=== PATIENT | male | born 1950 | race African-American/Black ===

== ENCOUNTER 2018-03-13 13:13 | Observation (INO) | payer MEDICARE ==
[2018-03-13 13:40] LABS: #Basophils 0.1 thou/uL (0.0-0.2); #Eosinphils 0.1 thou/uL (0.0-0.7); #Monocytes 0.6 thou/uL (0.11-0.59); #Neutrophils 5.6 thou/uL (1.40-6.50); %Basophils 0.8 % (0.0-1.0); %Eosinophils 0.6 % (0.0-10.0); %Lymphocytes 24.1 % (21.0-51.0); %Monocytes 7.5 % (0.0-10.0); Hemoglobin 14.4 g/dL (14.0-18.0); Mean Corpuscular HGB CONC 32.4 g/dL (32.0-36.0); Mean Corpuscular Hemoglobin 31.5 pg (27.0-31.0); Mean Corpuscular Volume 97.4 fL (78.0-98.0); Platelet Count 267 thou/uL (130-400); RBC Distribution Width 12.6 % (11.5-14.5); Red Blood Cell (RBC) Count 4.58 mill/uL (4.70-6.10); White Blood Cell (WBC) Count 8.4 thou/uL (4.8-10.8)
[2018-03-13 13:49] LABS: INR-International Normal Ratio 1.1; PTT 26.3 SEC (22.9-36.1); Prothrombin Time 14.1 SEC (12.0-14.7)
[2018-03-13 14:08] LABS: ALT (SGPT) 41 U/L (8-55); AST (SGOT) 27 U/L (5-34); Albumin 4.1 g/dL (3.4-4.8); Alkaline Phosphatase 68 U/L (40-150); Anion Gap 15 mmol/L (10-20); BUN (Urea Nitrogen) 17 mg/dL (8.4-25.7); Bilirubin, Total 0.6 mg/dL (0.2-1.2); CK (CPK) 242 U/L (30-200); Calc. Creatinine Clearance 0 mL/min (70-130); Calcium 9.9 mg/dL (7.8-10.44); Carbon Dioxide 21 mmol/L (23-31); Chloride 108 mmol/L (98-107); Estimated GFR-MDRD 79; Globulin 3.7 g/dL (2.4-3.5); Glucose 88 mg/dL (80-115); Potassium 3.6 mmol/L (3.5-5.1); Protein, Total 7.8 g/dL (5.8-8.1); Sodium 140 mmol/L (136-145)
[2018-03-13 14:12] LABS: CKMB 3.4 ng/mL (0-6.6)
[2018-03-13 14:33] LABS: Bilirubin Negative (Negative); Blood, Urine Negative (Negative); Clarity CLEAR (Clear); Glucose, Urine (Dipstick) Negative (Negative); Leukocyte Small (Negative); Nitrite Negative (Negative); Protein, Urine (Dipstick) Trace mg/dL (Neg-Trace); Specific Gravity, Urine 1.021 (1.002-1.036); Urobilinogen 0.2 mg/dL (0.2-1.0)
[2018-03-13 14:36] LABS: Bacteria/HPF None Seen HPF (None Seen); Hyaline Casts/LPF 4-6 HYALINE CAST LPF (0-3 Hyaline); Pathc Cast-AUWi Flag 0.72 (0-2.49); RBC/HPF None Seen HPF (0-3); Squamous Epithelial 0-3 HPF (0-3)
--- NOTE | 2018-03-13 14:38 | CT ---
CT HEAD NONCONTRAST: Date: 03/13/18 INDICATION: Left side weakness. COMPARISON: No prior imaging. FINDINGS: There is extensive, cystic, chronic encephalomalacia of the right cerebral hemisphere throughout the right MCA distribution which does result in prominent ex vacuo dilatation. There is no hemorrhage, ma ss effect, or midline shift. There is a lacunar infarction in the left basal ganglia. Superimposed ch ronic ischemic disease is present. No acute fluid levels of the paranasal sinuses. IMPRESSION: 1. Extensive chronic cystic encephalomalacia occupying a majority of the right cerebral hemisphere w ithin the MCA distribution with associated prominent ex vacuo dilatation of the ventricular system. 2. Lacunar infarction left basal ganglia. 3. No acute intracranial hemorrhage or mass effect. Telephone call findings placed to the ER physician, Dr. Plunkett, at 1321 hours on 03/13/18. CODE CR. POS: [facility]
--- NOTE | 2018-03-13 16:28 | PDOC.FPRHP ---
- History of Present Illness Chief Complaint: Weakness History of Present Illness: Mr. Aquino presents today to the ED with residual weakness from a stroke he had 3 -4 weeks ago Pt reports he is currently living out of a hotel and was picked up by PD on the way to get a haircut today when he was noted to have unilateral weakness.He denies any changes in his weakness, new chest pain, shortness of breath, palpitations, headache, visual changes or dizziness. He does not report much of any medical history and regularly contradicts his story. The weakness is confirmed to be at baseline per rehab he was discharged from. ED Course: CT, CK, CBC, CMP, CXR, trops - History PMHx: CVA PSHx: none FHx:none Social:1/2 pk a day, 12pk beer when he can get some - Review of Systems General: denies: fever/chills Eyes: denies: eye pain, vision changes ENT: denies: nasal congestion, rhinorrhea Respiratory: denies: cough, congestion Cardiovascular: denies: chest pain, palpitation Gastrointestinal: denies: nausea, vomiting, diarrhea Genitourinary: denies: incontinence, dysuria Skin: denies: rashes, lesions Musculoskeletal: denies: pain, tenderness Neurological: reports: weakness. denies: numbness - Vital signs BP: [] HR: [] RR: [] Tmax: [] Pox: []% on [] Wt: [] - Physical Exam Constitutional: NAD HEENT: normocephalic and atraumatic, grossly normal vision, grossly normal hearing Neck: supple, trachea midline Chest: no-tender to palpation, no lesions Heart: RRR, normal S1/S2, no murmurs/rubs/gallops Lungs: CTAB, no respiratory distress, good air movement, no rales/rhonchi, no wheezing, no retractions Abdomen: soft, non-tender, bowel sounds present Musculoskeletal: normal structure Neurological: other (2/5 strength on the L side) Skin: no rash/lesions, good turgor Heme/Lymphatic: no unusual bruising or bleeding FMR H&P: Results - Labs Result Diagrams: 03/13/18 13:34 03/13/18 13:34 Lab results: WBC 8.4 thou/uL (4.8-10.8) 03/13/18 13:34 Hgb 14.4 g/dL (14.0-18.0) 03/13/18 13:34 Hct 44.6 % (42.0-52.0) 03/13/18 13:34 MCV 97.4 fL (78.0-98.0) 03/13/18 13:34 Plt Count 267 thou/uL (130-400) 03/13/18 13:34 Neutrophils % 67.0 % (42.0-75.0) 03/13/18 13:34 Sodium 140 mmol/L (136-145) 03/13/18 13:34 Potassium 3.6 mmol/L (3.5-5.1) 03/13/18 13:34 Chloride 108 mmol/L (98-107) H 03/13/18 13:34 Carbon Dioxide 21 mmol/L (23-31) L 03/13/18 13:34 BUN 17 mg/dL (8.4-25.7) 03/13/18 13:34 Creatinine 0.95 mg/dL (0.6-1.3) 03/13/18 13:34 Glucose 88 mg/dL (80-115) 03/13/18 13:34 Calcium 9.9 mg/dL (7.8-10.44) 03/13/18 13:34 Total Bilirubin 0.6 mg/dL (0.2-1.2) 03/13/18 13:34 AST 27 U/L (5-34) 03/13/18 13:34 ALT 41 U/L (8-55) 03/13/18 13:34 Alkaline Phosphatase 68 U/L (40-150) 03/13/18 13:34 Creatine Kinase 242 U/L (30-200) H 03/13/18 13:34 CK-MB (CK-2) 3.4 ng/mL (0-6.6) 03/13/18 13:34 Serum Total Protein 7.8 g/dL (5.8-8.1) 03/13/18 13:34 Albumin 4.1 g/dL (3.4-4.8) 03/13/18 13:34 Urine Ketones Negative mg/dL (Negative) 03/13/18 14:15 Urine Blood Negative (Negative) 03/13/18 14:15 Urine Nitrite Negative (Negative) 03/13/18 14:15 Ur Leukocyte Esterase Small (Negative) H 03/13/18 14:15 Urine RBC None Seen HPF (0-3) 03/13/18 14:15 Urine WBC 11-20 HPF (0-3) H 03/13/18 14:15 Ur Squamous Epith Cells 0-3 HPF (0-3) 03/13/18 14:15 Urine Bacteria None Seen HPF (None Seen) 03/13/18 14:15 FMR H&P: A/P - Problem List (1) CVA, old, hemiparesis Current Visit: Yes Status: Acute Code(s): I69.359 - HEMIPLGA FOLLOWING CEREBRAL INFARCTION AFFECTING UNSP SIDE (2) HTN (hypertension) Current Visit: Yes Status: Acute Code(s): I10 - ESSENTIAL (PRIMARY) HYPERTENSION (3) HLD (hyperlipidemia) Current Visit: Yes Status: Acute Code(s): E78.5 - HYPERLIPIDEMIA, UNSPECIFIED - Plan Hx of CVA, residual weakness - CT neg for acute process, pos for old ischemic changes - asa, high dose statin - neuro checks, monitor on stroke floor HTN - permissive HTN HLD - high dose statin alcohol abuse - ASE protocol code: full ppx: lovenox Dispo: MRI wo to rule out acute CVA, DC tomorrow FMR H&P: Upper Level - Pertinent history 67 y/o M with hx/o stroke presents after being seen draggin his feet on the sidewalk today. He denies complaints. He was recently discharged from Rehab in [place] and says he has been living in a hotel and on the streets. Drinks ETOH regularly up to a 12 pack daily. States he does not have any medical problems other than HLD and HTN, and does have residual weakness on his L side as of 2w ago. - Pertinent findings NEURO: A& O x3. LLE and LUE strength 4/5. No cranial nerve defecits. No facial droop or slurring of speech. - Plan Date/Time: 03/13/18 1622 IJagdish, have evaluated this patient and agree with findings/plan as outlined by phd internship resident. Pertinent changes/additions are listed here. 1. Acute CVA vs TIA - Did certainly have a CVA 2 weeks ago but has not been on secondary prevention since that we know of. Continue with neuro checks. CT neck pending and will possibly need MRI. Apparently his Rehab was called and he appears at his baseline status. Observe him overnight. ASA/Statin 2. ETOH Abuse: up to a 12 pack per day[address] Will place on ASE protocol and medicate as needed. This may also contribute to his observed foot drop and abnormal behavior if he was intoxicated. 3. HTN: unsure of his medications, but we will place him on medications as his BP has been elevated. 4. HLD: On Statin. Attending Addendum - Attending Addendum Date/Time: 03/13/181921 I personally evaluated the patient and discussed the management with Dr. Vieira. I agree with the History, Examination, Assessment and Plan documented above with any addition or exceptions noted below. Mr Aquino is at his baseline from a CVA 2 weeks, however his social situation seems dire. He is homeless, out of his medications, and I cannot take care of humself. This observation period in the hospital affords an opportunity to contact his family, restat his meds and arrange living situation. PT/OT consulted.
[2018-03-13] MEDS ORDERED: Acetaminophen 325 MG TAB PO PRN ×2 (17:30→18:34)
[2018-03-13 18:43] VITALS: BMI 22.4
[2018-03-13] MEDS ORDERED: Prevnar 13-Val Conj/PF 0.5 ML SYRINGE IM ONE (21:00)
[2018-03-13] MEDS: Atorvastatin Calcium 40 MG TAB PO SCH (21:03)
[2018-03-14 05:54] LABS: Cardiac Risk 3.5 (Less than 4.5)
--- NOTE | 2018-03-14 06:30 | PDOC.FM ---
- Subjective Subjective: Patient has no new complaints this morning. Reports weakness is same as it usually is. Denies headache, CP, SOB. - Objective MAR Reviewed: Yes Vital Signs & Weight: Vital Signs (12 hours) Temp Pulse Resp BP BP Pulse Ox 03/14/18 04:00 123/72 03/14/18 03:09 98.0 F 61 16 123/72 94 L 03/13/18 23:00 98.8 F 87 16 132/67 94 L 03/13/18 19:42 98.4 F 72 18 114/63 95 Weight Weight 57.606 kg I&O: 03/12/18 03/13/18 03/14/18 06:59 06:59 06:59 Intake Total 980 Output Total 650 Balance 330 Result Diagrams: 03/13/18 13:34 03/13/18 13:34 <Rica Lucero - Last Filed: 03/14/18 10:07> - Objective Vital Signs & Weight: Vital Signs (12 hours) Temp Pulse Resp BP BP Pulse Ox 03/14/18 07:51 98.4 F 64 16 149/76 H 98 03/14/18 04:00 123/72 03/14/18 03:09 98.0 F 61 16 123/72 94 L Weight Weight 57.606 kg I&O: 03/13/18 03/14/18 03/15/18 06:59 06:59 06:59 Intake Total 980 Output Total 650 Balance 330 Result Diagrams: 03/13/18 13:34 03/13/18 13:34 <Yolanda Unger - Last Filed: 03/14/18 11:06> Phys Exam - Physical Examination Constitutional: NAD HEENT: moist MMs Respiratory: no wheezing, no rales, no rhonchi, clear to auscultation bilateral Cardiovascular: RRR, no significant murmur Gastrointestinal: soft, non-tender, no distention, positive bowel sounds Musculoskeletal: no edema, pulses present Neurological: moves all 4 limbs R sided facial weakness. Muscle strength 4/5 R UE/LE. 3/5 L UE/LE. Psychiatric: normal affect Skin: normal turgor <Rica Lucero - Last Filed: 03/14/18 10:07> Dx/Plan (1) CVA, old, hemiparesis Code(s): I69.359 - HEMIPLGA FOLLOWING CEREBRAL INFARCTION AFFECTING UNSP SIDE Status: Acute (2) HLD (hyperlipidemia) Code(s): E78.5 - HYPERLIPIDEMIA, UNSPECIFIED Status: Acute (3) HTN (hypertension) Code(s): I10 - ESSENTIAL (PRIMARY) HYPERTENSION Status: Acute - Plan Plan: Hx of CVA, residual weakness - CT neg for acute process, pos for old ischemic changes - considering patient has remained at baseline with no acute changes since previous d/c from rehab, will not pursue MRI at this time - On asa, high dose statin - neuro checks, monitor on stroke floor - UDS pending HTN - Will consider starting HTN medication. Unknown if he has been on med previously for this. HLD - high dose statin Alcohol abuse - ASE protocol code: full ppx: lovenox Dispo: discharge tomorrow pending case management <Rica uLcero - Last Filed: 03/14/18 10:07> Attending Addendum - Attending Addendum Date/Time: 03/14/18 1102 I personally evaluated the patient and discussed the management with Dr. Lucero. I agree with the History, Examination, Assessment and Plan documented above with any addition or exceptions noted below- Patient without complaints. Afebrile VSS. 1) s/p recent CVA- information obtained from his rehab facility and patient appears to be at baseline. Poor social situation. Will obtain case management in the morning to assist with possible placement. Continue ASA/ statin for secondary stroke prevention. Continue to monitor BP and may need medication. <Yolanda Unger - Last Filed: 03/14/18 11:06>
[2018-03-14] MEDS: Aspirin 81 mg Enteric Coated Tablet PO SCH (09:08)
[2018-03-14] MEDS: Enoxaparin Sodium 40 MG/0.4 ML SYRINGE SC SCH (09:08)
[2018-03-14 14:00] LABS: Amphetamine Not Detected (NotDetected); Barbiturates Screen Not Detected (NotDetected); Benzodiazepine Screen Not Detected (NotDetected); Cocaine Metabolite Screen Not Detected (NotDetected); Medtox Control Line Valid? VALID (VALID); Medtox Reader # READER 1; Methadone Not Detected (NotDetected); Methamphetamine Not Detected (NotDetected); Opiate Screen Not Detected (NotDetected); Oxycodone Screen Not Detected (NotDetected); Phencyclidine (PCP) Not Detected (NotDetected); THC/Cannabinoid Screen Not Detected (NotDetected); Tricyclic Screen Not Detected (NotDetected)
[2018-03-14] MEDS: Atorvastatin Calcium 40 MG TAB PO SCH (20:29)
--- NOTE | 2018-03-15 05:51 | PDOC.FM ---
- Subjective Subjective: Pt states he feels fine. Pt states he is homeless. - Objective Vital Signs & Weight: Vital Signs (12 hours) Temp Pulse Resp BP BP Pulse Ox 03/15/18 03:28 98.5 F 74 13 141/78 H 93 L 03/15/18 03:25 141/78 H 03/15/18 00:00 99.4 F 80 14 179/91 H 99 03/14/18 20:00 97.9 F 59 L 14 159/90 H 159/90 H 98 Weight Weight 57.606 kg I&O: 03/13/18 03/14/18 03/15/18 06:59 06:59 06:59 Intake Total 980 2160 Output Total 650 2300 Balance 330 -140 Result Diagrams: 03/13/18 13:34 03/13/18 13:34 Phys Exam - Physical Examination Constitutional: NAD Neck: supple +LAD Respiratory: no wheezing, clear to auscultation bilateral Cardiovascular: RRR, no significant murmur Gastrointestinal: soft, non-tender, positive bowel sounds Musculoskeletal: no edema, pulses present Psychiatric: normal affect, A&O x 3 Dx/Plan (1) CVA, old, hemiparesis Code(s): I69.359 - HEMIPLGA FOLLOWING CEREBRAL INFARCTION AFFECTING UNSP SIDE Status: Chronic (2) HLD (hyperlipidemia) Code(s): E78.5 - HYPERLIPIDEMIA, UNSPECIFIED Status: Chronic (3) HTN (hypertension) Code(s): I10 - ESSENTIAL (PRIMARY) HYPERTENSION Status: Chronic - Plan Plan: 67 yo M with PMH presents for residual weakness Hx of CVA, residual weakness - CT neg for acute process, positve for old ischemic changes - considering patient has remained at baseline with no acute changes since previous d/c from rehab, will not pursue MRI - On ASA and high dose statin - neuro checks, monitor on stroke floor - UDS negative HTN - Will consider starting HTN medication. Unknown if he has been on med previously for this. HLD - high dose statin Alcohol abuse - ASE protocol code: full ppx: lovenox Dispo: discharge today pending case management Diet: HH
[2018-03-15] MEDS: Enoxaparin Sodium 40 MG/0.4 ML SYRINGE SC SCH (09:04)
[2018-03-15] MEDS: Aspirin 81 mg Enteric Coated Tablet PO SCH (09:04)
--- NOTE | 2018-03-15 14:39 | ADD-PRG ---
DATE OF SERVICE: 03/15/2018 Please add this as an addendum to the note of Dr. Dora Kimbrough. Mr. Aquino had a history of stroke about 2 weeks ago with some residual weakness. This is completely unchanged from what he had 2 weeks ago. Mr. Aquino, this morning, is awake and alert. We are awaiting case management, as he is homeless an d it is cold outside. In any event, he will likely be discharged today, ideally on aspirin and stati ns and blood pressure control.
[2018-03-15] MEDS: Atorvastatin Calcium 40 MG TAB PO SCH (20:43)
--- NOTE | 2018-03-16 06:27 | PDOC.FM ---
- Subjective Subjective: Pt feels well this morning. No complaints. Eating breakfast. - Objective Vital Signs & Weight: Vital Signs (12 hours) Temp Pulse Resp BP BP Pulse Ox 03/16/18 04:00 98.1 F 57 L 16 137/69 100 03/16/18 00:54 143/77 H 03/15/18 23:29 98.5 F 74 16 143/77 H 97 03/15/18 20:00 98.6 F 64 18 142/77 H 94 L Weight Admit Weight 57.606 kg Weight 57.606 kg I&O: 03/14/18 03/15/18 03/16/18 06:59 06:59 06:59 Intake Total 980 2160 820 Output Total 650 2300 350 Balance 330 -140 470 Result Diagrams: 03/13/18 13:34 03/13/18 13:34 Phys Exam - Physical Examination Constitutional: NAD Neck: no nodes, supple Respiratory: no wheezing, clear to auscultation bilateral Cardiovascular: RRR, no significant murmur Gastrointestinal: soft, non-tender, no distention, positive bowel sounds Musculoskeletal: no edema, pulses present Neurological: normal sensation, moves all 4 limbs Psychiatric: normal affect Dx/Plan (1) CVA, old, hemiparesis Code(s): I69.359 - HEMIPLGA FOLLOWING CEREBRAL INFARCTION AFFECTING UNSP SIDE Status: Chronic (2) HLD (hyperlipidemia) Code(s): E78.5 - HYPERLIPIDEMIA, UNSPECIFIED Status: Chronic (3) HTN (hypertension) Code(s): I10 - ESSENTIAL (PRIMARY) HYPERTENSION Status: Chronic - Plan Plan: 67 yo M with PMH presents for residual weakness. Stable for discharge. Hx of CVA, residual weakness - CT neg for acute process, positve for old ischemic changes - considering patient has remained at baseline with no acute changes since previous d/c from rehab, will not pursue MRI - On ASA and high dose statin - neuro checks, monitor on stroke floor - UDS negative HTN - Started HCTZ 12.5 mg daily HLD - high dose statin Alcohol abuse - ASE protocol Dispo: discharge today, pt has been accepted at [facility] in [place] Diet: HH, ensure enliv supplement
[2018-03-16] MEDS ORDERED: Hydrochlorothiazide 25 MG TAB PO SCH (09:00)
[2018-03-16] MEDS ORDERED: Multivitamin W/ Minerals 1 TAB PO SCH (09:00)
[2018-03-16] MEDS: Aspirin 81 mg Enteric Coated Tablet PO SCH (09:12)
[2018-03-16] MEDS: Enoxaparin Sodium 40 MG/0.4 ML SYRINGE SC SCH (09:16)
--- NOTE | 2018-03-16 11:40 | ADD-PRG ---
DATE OF SERVICE: 03/16/2018 This is an addendum to the note of Dr. Dora Kimbrough. SUBJECTIVE: Mr. Aquino feels fine this morning with no new complaints. His CT scan as mentioned befo re shows no acute stroke. He did have a stroke approximately 3 weeks ago. His neurological exam is unchanged from that. He has been accepted at [facility] in [place] and is ready for discharge today.
[2018-03-16 12:31] VITALS: BP 138/79; TEMP 98
--- NOTE | 2018-03-17 01:56 | DIS-2 ---
DATE OF ADMISSION: 03/13/2018 DATE OF DISCHARGE: 03/16/2018 RESIDENT: Dora Kimbrough MD ADMITTING ATTENDING: Dr. Nazario Suarez. DISCHARGE ATTENDING: Dr. Horn. CONSULTS: None. PROCEDURES: Brain CT on 03/13/2018, impression: Extensive chronic cystic encephalomalacia occupying majority of the right cerebral hemisphere within the MCA distribution. Lacunar infarction of the left basal ganglia. No acute intracranial hemorrhage or mass effect. PRIMARY DIAGNOSIS: History of cerebrovascular accident with residual weakness. SECONDARY DIAGNOSES: 1. Hypertension. 2. Hyperlipidemia. 3. Alcohol abuse. DISCHARGE MEDICATIONS: 1. Atorvastatin 80 mg p.o. at bedtime. 2. Hydrochlorothiazide 12.5 mg p.o. daily. 3. Multivitamin one tab oral daily. 4. Aspirin 81 mg p.o. daily. DISCONTINUED MEDICATIONS: None. BRIEF HISTORY OF PRESENT ILLNESS AND HOSPITAL COURSE: Patient presented to the ED with residual weakness from a stroke he had 3-4 weeks prior. Patient reported he was currently living out of the hotel and was picked up by the police department on his way to get a haircut and was noted to have unilateral weakness. He denied any changes in his weakness, new chest pain, shortness of breath, palpitations, headache, visual changes, or dizziness. Pt was poor historian: he did not report any medical history and regularly contradicted history. The weakness was confirmed to be at baseline per the Rehab facility that he was discharged from. Patient had not been on secondary prevention. He was started on an aspirin and a statin. He appeared to remain at his baseline neurostatus, an MRI was not obtained because patient was at baseline. Patient drinks up to 12 beers per day and was placed on ASE protocol during his stay. He was placed on hypertension and hyperlipidemia meds. His urine drug screen was negative. He was discharged to [facility] in [place]. DISPOSITION: Stable. DISCHARGE INSTRUCTIONS: 1. Location: [facility] in [place]. 2. Diet: Heart healthy with Ensure Enlive supplement. 3. Activity: As tolerated. 4. Follow up with PCP in the next 2 weeks. CASEY
== END 2018-03-16 13:29 ==
LOC: ERS 13:13 → 2SE 17:06
PROVIDERS: ADMIT Family Medicine; ATTEND Family Medicine
DX: I69.354 Hemiplegia and hemiparesis following cerebral infarction affecting left non-dominant side (principal); F10.10 Alcohol abuse, uncomplicated; F17.210 Nicotine dependence, cigarettes, uncomplicated; I10 Essential (primary) hypertension; E78.5 Hyperlipidemia, unspecified; Z59.0 Homelessness; Z79.82 Long term (current) use of aspirin
CPT/HCPCS: 70450; 80053; 80061; 80306; 82550; 82553; 84484; 85025; 85610; 85730; 90662; 90670; 93005; 96372 ×3; 97139 ×2; 99285; G0008; G0009; G0378 ×3; G8978; G8979; G8987; G8988; 36415; 81003; 81015; 90471; J1650